=== PATIENT | female | born 1975 | race Caucasian/White ===

== ENCOUNTER 2016-04-17 07:36 | Emergency (ER) | payer BC ==
--- NOTE | 2016-04-17 07:48 | Emergency Department Record ---
History of Present Illness - General Chief complaint: Female Urogenital Problem Stated complaint: BLADDER INFECTION Time Seen by Provider: 04/17/16 07:47 Source: Patient Mode of Arrival: Ambulatory Limitations: No limitations - History of Present Illness Initial comments: The patient is here due to a 7 day course of dysuria. She denies any AP, back pain, fever or vomiting. She believes she has a bladder infection. Complaint: Dysuria Onset/Timin -: Days(s) Severity scale (1-10): 4 Quality: Aching Consistency: Constant Improves with: None Worsens with: None Associated Symptoms: Denies other symptoms - Related Data Home Medications Medication Instructions Recorded Confirmed Last Taken Norgestimate-Ethinyl Estradiol 1 each PO DAILY 04/17/16 04/17/16 1 Day Ago [Norg-Ee 0.18-0.215-0.25/0.025] Paroxetine HCl [Paxil] 10 mg PO DAILY 04/17/16 04/17/16 1 Day Ago Previous Rx's Medication Instructions Recorded Nitrofurantoin Sac [Macrobid] 100 mg PO BID #10 capsule 04/17/16 Allergies Allergy/AdvReac Type Severity Reaction Status Date / Time tetracycline Allergy RASH Verified 04/17/16 07:47 Travel Screening - Travel/Exposure Within Last 30 Days Have you traveled within the last 30 days?: No - Travel/Exposure Within Last Year Have you traveled outside the [place] in the last year?: No - Additonal Travel Details Have you been exposed to anyone with a communicable illness?: No - Travel Symptoms Symptom Screening: None Review of Systems Constitutional: Denies: Chills, Fever Past Medical History - SOCIAL HISTORY Smoking Status: Never smoker Alcohol Use: Occassional Drug Use: None - RESPIRATORY Hx Respiratory Disorders: No - CARDIOVASCULAR Hx Cardio Disorders: No - NEURO Hx Neuro Disorders: No - GI Hx GI Disorders: No - Hx UTI: Yes - ENDOCRINE Hx Endocrine Disorders: No - MUSCULOSKELETAL Hx Musculoskeletal Disorders: No - PSYCH Hx Psych Problems: No - HEMATOLOGY/ONCOLOGY Hx Hematology/Oncology Disorders: No Family Medical History Any Significant Family History?: Yes Hx Heart Disease: Mother Physical Exam - General General Appearance: Alert, Cooperative, No acute distress - Head Head exam: Atraumatic, Normocephalic, Normal inspection - Eye Eye exam: Normal appearance, PERRL - Neck Neck exam: Normal inspection, Full ROM. negative: Tenderness - Respiratory Respiratory exam: Normal lung sounds bilaterally. negative: Respiratory distress - Cardiovascular Cardiovascular Exam: Regular rate, Normal rhythm, Normal heart sounds - GI/Abdominal GI/Abdominal exam: Soft, Normal bowel sounds. negative: Tenderness - Back Back exam: Denies: CVA tenderness (R), CVA tenderness (L) Course Vital Signs 04/17/16 07:40 Temperature 97.8 F Pulse Rate 61 Respiratory 16 Rate Blood Pressure 121/79 Pulse Ox 97 - Reevaluation(s) Reevaluation #1: The patient is doing very well at this time. I did explain the UA results to her. 04/17/16 08:18 Disposition Disposition: Discharge Clinical Impression: Cystitis Disposition: Home, Self-Care Condition: (1) Good Instructions: Urinary Tract Infection in Women (ED) Additional Instructions: Please drink plenty of fluids and take the Macrobid as directed. Please see your PCP or return to the ER if not better in 3 days. Prescriptions: Nitrofurantoin Sac [Macrobid] 100 mg PO BID #10 capsule Forms: Patient Portal Access Time of Disposition: 08:10
[2016-04-17 07:58] LABS: URINE APPEARANCE SL CLOUDY; URINE BILIRUBIN NEGATIVE (NEGATIVE); URINE BLOOD NEGATIVE (NEGATIVE); URINE COLOR YELLOW; URINE GLUCOSE (UA) NEGATIVE (NEGATIVE); URINE KETONE NEGATIVE (NEGATIVE); URINE LEUKOCYTE ESTERASE SMALL (NEGATIVE); URINE NITRITE NEGATIVE (NEGATIVE); URINE PROTEIN NEGATIVE (NEGATIVE); URINE UROBILINOGEN 0.2 E.U./dL (0.20 - 1.00)
[2016-04-17 08:10] LABS: URINE RBC NONE SEEN (NONE SEEN)
[2016-04-17 08:11] LABS: URINE BACTERIA FEW; URINE SQUAMOUS EPITHELIAL CELL 0 - 2 /hpf; URINE TRANSITIONAL EPI CELLS 0 - 2 /hpf
[2016-04-17] MEDS ORDERED: NITROFURANTOIN MONO 100 MG CAPSULE PO ONE (08:12)
== END 2016-04-17 08:17 | disposition home or self-care (01) ==
LOC: ER 07:36
DX: N30.90 Cystitis, unspecified without hematuria (principal)
CPT/HCPCS: 81001; 81025; 99282